=== PATIENT | female | born 1995 | race African-American/Black ===

== ENCOUNTER 2018-07-31 23:36 | Emergency (ER) | payer SELFPAY ==
[~2018-07-31] VITALS: Ht 162.6 cm; Wt 86.4 kg
[2018-08-01 00:31] VITALS: BP 118/74
== END 2018-08-01 00:36 | disposition home or self-care (01) ==
LOC: EMS 23:37
DX: F41.9 Anxiety disorder, unspecified (principal)
CPT/HCPCS: 99283